=== PATIENT | male | born 1995 | race Caucasian/White ===

== ENCOUNTER 2025-07-12 11:22 | Inpatient (IN) | payer MEDICAID, OTHER ==
[~2025-07-12] VITALS: Ht 157.5 cm; Wt 67.1 kg
[~2025-07-12 11:22] MED LIST: ACET-2708 MT
[2025-07-12 11:27] VITALS: O2SAT 99
[2025-07-12] MEDS: SODIUM CHLORIDE 0.9% 1,000 ML IV ONE (12:59)
[2025-07-12] MEDS: ONDANSETRON HCL 4MG/2ML INJ IV ONE (12:59)
[2025-07-12] MEDS ORDERED: HYDROMORPHONE HCL/PF 2MG/ML INJ IV ONE (13:45)
[2025-07-12 14:01] LABS: BASOPHILS % 0.6 % (0.0-2.0); EOSINOPHILS % 0.2 % (0.0-5.0); HEMATOCRIT. 40.4 % (42.0-52.0); HEMOGLOBIN. 13.9 g/dL (14.0-18.0); LYMPHOCYTES % 10.9 % (20.0-50.0); MEAN PLATELET VOLUME 7.8 fl (7.4-10.4); MONOCYTES % 13.5 % (2.0-8.0); NEUTROPHILS % 74.8 % (40.0-76.0); PLATELET 233 x1000/uL (130-400); RED BLOOD CELL COUNT 4.27 mill/uL (4.7-6.1); RED CELL DISTRIBUTION WIDTH 13.0 % (11.6-14.6)
[2025-07-12 14:15] LABS: CREATININE 0.6 mg/dL (0.6-1.3); UREA NITROGEN BLOOD 5 mg/dL (9-23)
[2025-07-12 14:16] LABS: CREATINE KINASE MB FRACTION 0.7 ng/mL (0.5-3.6); TROPONIN I HIGH SENSITIVITY < 4 ng/L (3.0-53)
[2025-07-12 14:17] LABS: ASPARTATE AMINOTRANSFERASE 159 IU/L (<34); BILIRUBIN DIRECT 0.3 mg/dL (<=3.0)
[2025-07-12 14:18] LABS: BILIRUBIN TOTAL 1.0 mg/dL (0.1-1.0); PROTEIN TOTAL 7.1 g/dL (6.0-8.3)
[2025-07-12 14:20] LABS: INR 1.0
[2025-07-12] MEDS: HYDROMORPHONE HCL/PF 1MG/ML INJ IV SCH (15:33)
[2025-07-12 16:03] LABS: TROPONIN I HIGH SENSITIVITY < 4 ng/L (3.0-53)
[2025-07-12 16:18] LABS: CLARITY URINE CLEAR (CLEAR); COLOR URINE YELLOW (YELLOW); GLUCOSE URINE TRACE (NEGATIVE); KETONES URINE TRACE (NEGATIVE); LEUKOCYTE ESTERASE URINE NEGATIVE (NEGATIVE); NITRITE URINE NEGATIVE (NEGATIVE); OCCULT BLOOD URINE NEGATIVE (NEGATIVE); PH URINE 8.0 (4.5-8.0); PROTEIN URINE NEGATIVE (NEGATIVE); SPECIFIC GRAVITY URINE 1.037 (1.005-1.030); UROBILINOGEN URINE 0.2 E.U./dL (0.2-1.0)
[2025-07-12 16:30] LABS: *AMPHETAMINES SCREEN URINE NEGATIVE (NEGATIVE); *BARBITURATES SCREEN URINE NEGATIVE (NEGATIVE); *BENZODIAZEPINES SCREEN URINE NEGATIVE (NEGATIVE); *COCAINE SCREEN URINE NEGATIVE (NEGATIVE); CANNABINOID URINE SCREEN NEGATIVE (NEGATIVE); ECSTASY MDMA SCREEN URINE NEGATIVE (NEGATIVE); METHADONE URINE SCREEN NEGATIVE (NEGATIVE); OPIATES URINE SCREEN NEGATIVE (NEGATIVE); PHENCYCLIDINE URINE SCREEN NEGATIVE (NEGATIVE)
[2025-07-12 16:37] LABS: BACTERIA URINE TRACE; RBC URINE NONE SEEN /hpf (0-2); SQUAMOUS EPITHELIAL CELL URINE RARE /lpf (RARE/1+); WBC URINE 0-2 /hpf (0-2)
[2025-07-12 16:38] LABS: AMORPHOUS SEDIMENT URINE 1+ /lpf
[2025-07-12] MEDS ORDERED: HYDROMORPHONE HCL/PF 2MG/ML INJ IV PRN (18:00)
[2025-07-12] MEDS: HYDROMORPHONE HCL/PF 1MG/ML INJ IV PRN (18:22)
[2025-07-12] MEDS ORDERED: ONDANSETRON HCL 4MG/2ML INJ IV PRN ×2 (18:45→22:00)
[2025-07-12 20:00] VITALS: BP 124/75; PULSE 69; RESP 17; TEMP 36.7; O2SAT 100
[2025-07-12] MEDS ORDERED: ACETAMINOPHEN 325MG TABLET PO PRN (22:00)
[2025-07-12] MEDS ORDERED: NALOXONE HCL 0.4MG/ML VIAL IV PRN (22:15)
[2025-07-12] MEDS: DEXT 5%/0.45% NACL 1000ML 1,000 ML IV SCH (23:38)
[2025-07-13] VITALS (7 sets, daily range): BP systolic 99–149; BP diastolic 52–96; PULSE 64–80; RESP 16–19; TEMP 36.3068–36.8; O2SAT 18–99
[2025-07-13] MEDS: PANTOPRAZOLE SODIUM 40 MG/VIAL IV SCH (09:01)
[2025-07-13 10:30] LABS: HEPATITIS C AB NON REACTIVE (Neg) (Negative)
[2025-07-13] MEDS ORDERED: NALOXONE HCL 0.4MG/ML VIAL IV PRN (11:30)
[2025-07-13] MEDS: PANTOPRAZOLE 40MG DR TABLET PO SCH (11:30)
[2025-07-13] MEDS: KETOROLAC 30MG/ML VIAL IV PRN (12:11)
[2025-07-13] MEDS: HYDROCODONE/ACETAMINOPHEN 5/325MG TABLET PO PRN (17:28)
[2025-07-13] MEDS ORDERED: PNEUMOCOCCAL 20-VAL CONJ-DIP CRM 0.5ML IM ONE (21:00)
[2025-07-14] VITALS: BP 102/57; PULSE 62; RESP 18; TEMP 36.5; O2SAT 99
[2025-07-14 04:00] VITALS: BP 99/41; PULSE 66; RESP 18; TEMP 36.2; O2SAT 97
[2025-07-14 08:00] VITALS: BP 103/54; PULSE 60; RESP 17; TEMP 36.3; O2SAT 98
[2025-07-14 09:16] VITALS: BP 105/65; PULSE 59; RESP 16; TEMP 36.6; O2SAT 98
[2025-07-14 15:15] VITALS: BP 103/52; PULSE 60; RESP 16; TEMP 36.7; O2SAT 98
[2025-07-14 20:00] VITALS: BP 116/63; PULSE 64; RESP 15; TEMP 37.1; O2SAT 96
[2025-07-15] VITALS: BP 111/62; PULSE 61; RESP 17; TEMP 36.7; O2SAT 97
[2025-07-15 04:00] VITALS: BP 109/64; PULSE 60; RESP 17; TEMP 36.6; O2SAT 97
[2025-07-15 08:00] VITALS: BP 101/59; PULSE 78; RESP 19; TEMP 36.7; O2SAT 97
[2025-07-15 12:00] VITALS: BP 106/60; PULSE 70; RESP 19; TEMP 36.7; O2SAT 99
[2025-07-15 16:00] VITALS: BP 109/62; PULSE 71; RESP 19; TEMP 36.8; O2SAT 99
[2025-07-15 20:00] VITALS: BP 96/50; PULSE 63; RESP 19; TEMP 36.9; O2SAT 97
[2025-07-16] VITALS: BP 103/52; PULSE 60; RESP 19; TEMP 36.8; O2SAT 98
[2025-07-16 04:00] VITALS: BP 99/58; PULSE 62; RESP 19; TEMP 36.9; O2SAT 98
[2025-07-16 08:00] VITALS: BP 95/54; PULSE 58; RESP 18; TEMP 36.8; O2SAT 99
[2025-07-16] MEDS: IOHEXOL-300 100 ML BOTTLE ONE (08:27)
[2025-07-16 12:00] VITALS: BP 50/54; PULSE 62; RESP 18; TEMP 36.8; O2SAT 99
[2025-07-16 16:00] VITALS: BP 96/53; PULSE 63; RESP 18; TEMP 36.9; O2SAT 99
[2025-07-16 20:00] VITALS: BP 102/56; PULSE 73; RESP 16; TEMP 36.6; O2SAT 95
[2025-07-16] MEDS: FAMOTIDINE 20MG TABLET PO SCH (21:42)
[2025-07-16] MEDS: TRAMADOL 50MG TABLET PO PRN (21:45)
[2025-07-17] VITALS: BP 99/54; PULSE 63; RESP 17; TEMP 36.7; O2SAT 98
[2025-07-17] MEDS: IBUPROFEN 600MG TABLET PO PRN (03:37)
[2025-07-17 04:00] VITALS: BP 95/56; PULSE 67; RESP 18; TEMP 36.5; O2SAT 97
[2025-07-17] MEDS: DOCUSATE SODIUM 250MG CAPSULE PO SCH (08:34)
[2025-07-17 16:00] VITALS: BP 113/62; PULSE 62; RESP 19; TEMP 36.4; O2SAT 98
[2025-07-17 20:00] VITALS: BP 94/48; PULSE 83; RESP 18; TEMP 36.4; O2SAT 100
[2025-07-18] VITALS: BP 93/47; PULSE 60; RESP 18; TEMP 36.4; O2SAT 99
[2025-07-18 04:00] VITALS: BP 103/60; PULSE 65; RESP 16; TEMP 36.6; O2SAT 98
[2025-07-18 08:00] VITALS: BP 102/55; PULSE 74; RESP 20; TEMP 36.3; O2SAT 95
[2025-07-18 12:00] VITALS: BP 98/43; PULSE 64; RESP 18; TEMP 36.3; O2SAT 96
[2025-07-18 16:00] VITALS: BP 98/54; PULSE 58; RESP 20; TEMP 36.4; O2SAT 95
[2025-07-18 20:00] VITALS: BP 98/56; PULSE 67; RESP 18; TEMP 37.1; O2SAT 95
[2025-07-19] VITALS: BP 102/51; PULSE 60; RESP 18; TEMP 36.9; O2SAT 99
[2025-07-19 04:00] VITALS: BP 104/57; PULSE 65; RESP 20; TEMP 36.8; O2SAT 96
[2025-07-19 08:00] VITALS: BP 96/45; PULSE 58; RESP 20; TEMP 36.2; O2SAT 98
[2025-07-19 12:00] VITALS: BP 90/50; PULSE 61; RESP 20; TEMP 36.1; O2SAT 95
[2025-07-19 16:00] VITALS: BP 107/26; PULSE 55; RESP 20; TEMP 36.3; O2SAT 97
[2025-07-19 20:00] VITALS: BP 103/56; PULSE 70; RESP 20; TEMP 37.1; O2SAT 98
[2025-07-20] VITALS: BP 106/52; PULSE 68; RESP 20; TEMP 36.9; O2SAT 98
[2025-07-20 04:00] VITALS: BP 108/59; PULSE 62; RESP 16; TEMP 36.6; O2SAT 96
[2025-07-20 08:00] VITALS: BP 90/54; PULSE 54; RESP 19; TEMP 36.4; O2SAT 98
[2025-07-20 12:00] VITALS: BP 92/55; PULSE 57; RESP 17; TEMP 36.4; O2SAT 98
[2025-07-20 16:00] VITALS: BP 94/57; PULSE 59; RESP 18; TEMP 36.4; O2SAT 98
[2025-07-20 20:00] VITALS: BP 104/50; PULSE 61; RESP 18; TEMP 36.3; O2SAT 98
[2025-07-21] VITALS: BP 100/43; PULSE 51; RESP 18; TEMP 36.2; O2SAT 100
[2025-07-21 08:00] VITALS: BP 103/57; PULSE 52; RESP 18; TEMP 36.4; O2SAT 97
[2025-07-21 12:00] VITALS: BP 104/54; PULSE 71; RESP 18; TEMP 36.3; O2SAT 97
[2025-07-21 16:00] VITALS: BP 102/49; PULSE 61; RESP 18; TEMP 36.4; O2SAT 97
[2025-07-21] MEDS: ACETAMINOPHEN 325MG TABLET PO PRN (17:52)
[2025-07-21 20:00] VITALS: BP 95/74; PULSE 60; RESP 16; TEMP 36.5; O2SAT 95
[2025-07-22] VITALS: BP 102/70; PULSE 64; RESP 17; TEMP 36.2; O2SAT 97
[2025-07-22 04:00] VITALS: BP 108/57; PULSE 59; RESP 16; TEMP 36.4; O2SAT 98
[2025-07-22 08:00] VITALS: BP 103/57; PULSE 74; RESP 20; TEMP 36.3; O2SAT 95
[2025-07-22 12:00] VITALS: BP 98/40; PULSE 56; RESP 20; TEMP 36.5; O2SAT 99
[2025-07-22 16:00] VITALS: BP 101/52; PULSE 69; RESP 20; TEMP 36.6; O2SAT 97
[2025-07-22 20:00] VITALS: BP 99/61; PULSE 67; RESP 18; TEMP 36.3; O2SAT 97
[2025-07-23] VITALS: BP 102/55; PULSE 80; RESP 18; TEMP 36.3; O2SAT 92
[2025-07-23 04:00] VITALS: BP 90/44; PULSE 49; RESP 18; TEMP 36.1; O2SAT 98
[2025-07-23 08:00] VITALS: BP 121/59; PULSE 58; RESP 20; TEMP 36.3; O2SAT 98
[2025-07-23 12:00] VITALS: BP 118/66; PULSE 85; RESP 20; TEMP 36.3; O2SAT 94
[2025-07-23 12:16] VITALS: BP 118/66; PULSE 68; RESP 18; TEMP 97.6
[2025-07-23] MEDS ORDERED: ACET-2708 MT (13:46)
[2025-07-24] MEDS ORDERED: DOCUSATE SODIUM 100MG CAPSULE PO SCH (09:00)
== END 2025-07-23 15:45 | disposition home or self-care (01) | DRG 342 ==
LOC: ER 11:40 → EDBEDREQ 16:41 → EDBEDREQTM 16:41 → ENRESERV 19:10 → 6WST 19:46 → 8EST 07-14 08:58
PROVIDERS: ADMIT Internal Medicine; ATTEND Internal Medicine
DX: S82.142A Displaced bicondylar fracture of left tibia, initial encounter for closed fracture (principal); E78.00 Pure hypercholesterolemia, unspecified; F10.20 Alcohol dependence, uncomplicated; S52.125A Nondisplaced fracture of head of left radius, initial encounter for closed fracture; S52.135A Nondisplaced fracture of neck of left radius, initial encounter for closed fracture; R51.9 Headache, unspecified; V29.888A Rider (driver) (passenger) of other motorcycle injured in other specified transport accidents, initial encounter; Z88.0 Allergy status to penicillin; Z88.5 Allergy status to narcotic agent; Y93.89 Activity, other specified; Y99.8 Other external cause status; Y92.89 Other specified places as the place of occurrence of the external cause
CPT/HCPCS: 36415; 71045; 71260; 73030; 73070; 73080; 73502; 73552; 73560; 73590; 73630; 73700; 74177; 80048; 80076; 80305; 80320; 81003; 82550; 82553; 84484; 85025; 86705; 86850; 86900; 87340; 90732; 93005; 96361; 96365; 96375; 97110; 97162; 97166; 97530; 97535; 97542; 99291; A4565; A4606; A6449; G0378; J1171; J1885; J2405; J2470; J7030; Q9967; G0480